=== PATIENT | female | born 1980 | race American Indian/Alaskan Native ===

== ENCOUNTER 2017-09-29 14:54 | Emergency (ER) | payer OTHER ==
[2017-09-29 15:03] VITALS: BP 160/98
[2017-09-29] MEDS ORDERED: CATAPRES PO ONE (18:21)
[2017-09-29] MEDS ORDERED: NORCO 7.5/325 PO ONE (18:21)
--- NOTE | 2017-09-29 19:13 | Emergency Department Report ---
ED General Adult HPI - General Chief complaint: Extremity Injury, Lower Stated complaint: CHEST AND LEGS HURT Time Seen by Provider: 09/29/17 17:36 Source: patient Mode of arrival: Ambulatory Limitations: No Limitations - History of Present Illness Initial comments: Patient is a 36-year-old female history of morbid obesity and chronic leg pain. Who is presenting with 2 complaints. In regards to chest pain the patient states that her chest is been hurting for the past several days. There is no exertional component is no shortness of breath is no nausea vomiting she says she has achiness in the chest. Patient's blood pressure is elevated today although she does not have a history of high blood pressure. Patient also states that for the past 6 months she has had pain in the bilateral legs. He states this pain radiates from her back to her bilateral legs she has pain in her knees when she feels like her knees to give out. Patient is given the multiple ERs and states no one is doing anything for me. Patient's has had ultrasounds performed to rule out blood clots. Patient's pain has not changed since he is begun. Severity scale (0 -10): 10 - Related Data Home Medications Medication Instructions Recorded Confirmed Last Taken Albuterol Sulfate [Ventolin Hfa] 2 puff IH QID PRN 04/07/17 04/07/17 Unknown Quetiapine Fumarate [SEROquel] 200 mg PO HS 04/07/17 04/07/17 Unknown clonazePAM [Klonopin] 1 mg PO DAILY 04/07/17 04/07/17 Unknown Previous Rx's Medication Instructions Recorded Last Taken Type Nicotine [Habitrol] 21 mg TD QDAY@2200 #30 patch 04/09/17 Unknown Rx Pantoprazole [Protonix TAB] 40 mg PO QDAY #30 tablet 04/09/17 Unknown Rx Metoprolol [Lopressor] 25 mg PO BID #60 tablet 09/29/17 Unknown Rx traMADol [Ultram] 50 mg PO Q6HR PRN #10 tablet 09/29/17 Unknown Rx Allergies Allergy/AdvReac Type Severity Reaction Status Date / Time seafood Allergy Swelling Uncoded 09/29/17 14:59 ED Review of Systems ROS: Stated complaint: CHEST AND LEGS HURT Other details as noted in HPI Comment: All other systems reviewed and negative ED Past Medical Hx - Past Medical History Hx Congestive Heart Failure: No Hx Diabetes: No Hx Asthma: Yes (intubated x 1) Hx COPD: No - Social History Smoking Status: Current Every Day Smoker Substance Use Type: None, Alcohol - Medications Home Medications: Home Medications Medication Instructions Recorded Confirmed Last Taken Type Albuterol Sulfate [Ventolin Hfa] 2 puff IH QID PRN 04/07/17 04/07/17 Unknown History Quetiapine Fumarate [SEROquel] 200 mg PO HS 04/07/17 04/07/17 Unknown History clonazePAM [Klonopin] 1 mg PO DAILY 04/07/17 04/07/17 Unknown History Nicotine [Habitrol] 21 mg TD QDAY@2200 #30 patch 04/09/17 Unknown Rx Pantoprazole [Protonix TAB] 40 mg PO QDAY #30 tablet 04/09/17 Unknown Rx Metoprolol [Lopressor] 25 mg PO BID #60 tablet 09/29/17 Unknown Rx traMADol [Ultram] 50 mg PO Q6HR PRN #10 tablet 09/29/17 Unknown Rx ED Physical Exam - General Limitations: No Limitations General appearance: alert, in no apparent distress - Head Head exam: Present: atraumatic, normocephalic - Eye Eye exam: Present: normal appearance - ENT ENT exam: Present: mucous membranes moist - Neck Neck exam: Present: normal inspection - Respiratory Respiratory exam: Present: normal lung sounds bilaterally. Absent: respiratory distress, wheezes, rales, rhonchi - Cardiovascular Cardiovascular Exam: Present: regular rate, normal rhythm. Absent: systolic murmur, diastolic murmur, rubs, gallop - GI/Abdominal GI/Abdominal exam: Present: soft, normal bowel sounds. Absent: distended, tenderness, guarding, rebound - Extremities Exam Extremities exam: Present: normal inspection, full ROM. Absent: tenderness - Back Exam Back exam: Present: normal inspection - Neurological Exam Neurological exam: Present: alert, oriented X3 - Psychiatric Psychiatric exam: Present: normal affect, normal mood - Skin Skin exam: Present: warm, dry, intact, normal color. Absent: rash ED Course Vital Signs 09/29/17 09/29/17 14:59 18:37 Temperature 98.6 F Pulse Rate 101 H 74 Respiratory 18 Rate Blood Pressure 160/98 160/98 O2 Sat by Pulse 97 Oximetry ED Medical Decision Making - Lab Data Lab Results 09/29/17 Range/Units 18:25 Troponin T < 0.010 (0.00-0.029) ng/mL - EKG Data -: EKG Interpreted by Me EKG shows normal: sinus rhythm, axis, intervals, QRS complexes, ST-T waves Rate: normal - EKG Data Interpretation: normal EKG - Medical Decision Making Regarding the patient's chest pain patient does have elevated blood pressure EKG is within normal limits as well as her troponin. Patient be started on blood pressure medicine given. [facility] for follow-up. Regarding the patient's chronic pain did have an extensive conversation with the patient regarding the fact that her multiple ER visits a not going to lead to a diagnosis of her chronic pain. Patient is describing what sounds like arthritic type syndrome however the patient has not taken anything over-the- counter has not used any rice therapy has not gotten any Lucho wrap sore braces for the knees and is elected to go to multiple ERs. I explained what the purpose of emergency Department is and that the patient will need to see her primary care or orthopedic doctor to give further diagnosis of her leg pain. Patient states she is had multiple ultrasounds which has ruled out a DVT at this time. Do not feel as though additional ultrasound is necessary today since her pain has not changed since her last ultrasound. Patient was quite upset and states that no one will do anything for her however I tried to explain that she is actually seeking help from the raw type of physician. Patient again was given orthopedic follow-up as well as she can follow with primary care at [facility] as well. Re Critical care attestation.: If time is entered above; I have spent that time in minutes in the direct care of this critically ill patient, excluding procedure time. ED Disposition Clinical Impression: Atypical chest pain, Hypertensive urgency, Chronic leg pain Disposition: [id number] TO HOME OR SELFCARE Is pt being admited?: No Does the pt Need Aspirin: No Condition: Stable Instructions: Chest Pain (ED), Hypertension (ED), Arthralgia (ED) Prescriptions: Metoprolol [Lopressor] 25 mg PO BID #60 tablet traMADol [Ultram] 50 mg PO Q6HR PRN #10 tablet PRN Reason: Pain Referrals: [facility] [Outside] - 3-5 Days
== END 2017-09-29 19:26 | disposition home or self-care (01) ==
LOC: ED 14:54
DX: I16.0 Hypertensive urgency (principal); R07.89 Other chest pain; G89.29 Other chronic pain; M79.606 Pain in leg, unspecified; F17.200 Nicotine dependence, unspecified, uncomplicated; Z91.013 Allergy to seafood
CPT/HCPCS: 36415; 84484; 93005; 93010; 99282